=== PATIENT | female | born 1955 | race Caucasian/White ===

== ENCOUNTER 2022-10-03 08:14 | Day surgery (SDC) | payer MEDICARE, BC ==
[2022-10-01 11:44] LABS: BASOPHILS # (AUTO) 0.1 X10'3 (0-0.2); EOSINOPHILS # (AUTO) 0.1 X10'3 (0-0.9); EOSINOPHILS % (AUTO) 1.9 % (0-6); LYMPHOCYTES # (AUTO) 1.5 X10'3 (1.1-4.8); LYMPHOCYTES % (AUTO) 24.4 % (21-51); MEAN CORPUSCULAR HEMOGLOBIN 28.9 PG (27.0-31.0); MEAN CORPUSCULAR VOLUME 87.5 FL (78-98); MEAN PLATELET VOLUME 8.5 FL (7.4-10.4); MONOCYTES # (AUTO) 0.5 X10'3 (0-0.9); MONOCYTES % (AUTO) 8.5 % (2-12); NEUTROPHILS # (AUTO) 3.9 X10'3 (1.8-7.7); NEUTROPHILS % (AUTO) 64.2 % (42-75); PRE OP HEMATOCRIT 38.4 % (35.0-45.0); PRE OP HEMOGLOBIN 12.7 g/dL (12.0-16.0); PRE OP PLATELET COUNT 241 X10'3 (140-440); RED BLOOD COUNT 4.39 X10'6 (4.20-5.60); RED CELL DISTRIBUTION WIDTH 15.1 % (11.5-14.5)
[2022-10-01 11:47] LABS: CLARITY,URINE SLIGHTLY CLOUDY (Clear); COLOR,URINE YELLOW (Yellow); GLUCOSE, URINE NEGATIVE (Neg); KETONES,URINE NEGATIVE (Neg); LEUKOCYTE ESTERASE ,URINE NEGATIVE (Neg); NITRITES, URINE NEGATIVE (Neg); OCCULT BLOOD,URINE NEGATIVE (Neg); PROTEIN,URINE NEGATIVE (Neg); UROBILINOGEN,URINE 0.2 E.U/dL (0.2-1.0)
[2022-10-01 11:50] LABS: UA COLLECTION TYPE CLN CATCH MIDSTREAM
[2022-10-01 11:53] LABS: BACTERIA,URINE FEW /HPF (Neg); RBC,URINE NONE SEEN /HPF (0-2); SQUAMOUS EPITHELIAL CELL,UR MANY /LPF (FEW); WBC,URINE 0-4 /HPF (0-4)
[2022-10-01 11:59] LABS: ALBUMIN 3.7 G/DL (3.4-5.0); ALKALINE PHOSPHATASE 92 IU/L (46-116); BLOOD UREA NITROGEN 19 MG/DL (7-18); BUN/CREATININE RATIO 19.2 (10.0-20.0); CALCIUM 9.1 MG/DL (8.5-10.1); CHLORIDE 104 MMOL/L (99-107); CREATININE 0.99 MG/DL (0.40-0.90); PRE OP ALT 29 U/L (30-65); PRE OP ANION GAP 7 (8-16); PRE OP AST 20 U/L (10-37); PRE OP BILIRUB, TOTAL 0.3 MG/DL (0.0-1.0); PRE OP GLUCOSE 100 MG/DL (70-104); PRE OP POTASSIUM 4.3 MMOL/L (3.4-5.1); PRE OP SODIUM 139 MMOL/L (135-145); TOTAL CARBON DIOXIDE 28.1 MMOL/L (24-32); TOTAL PROTEIN 7.4 G/DL (6.4-8.2); eGFR 56 ML/MIN
[~2022-10-03] VITALS: Ht 172.7 cm; Wt 116.6 kg
[2022-10-03] VITALS (9 sets, daily range): BP systolic 109–152; BP diastolic 79–87
[~2022-10-03 08:14] MED LIST: DUPI300S SQ; GENTAMICIN IV ONE; LEVO75TA7 PO; NORMAL SALINE IV ONE; PANT40TA54 PO; clindamycin-Cleocin 900mg/D5W 50 ML IV ONE; famotidine 20mg tablet PO ONE; ringers solution, lacted 1,000 ML IV SCH
[2022-10-03] MEDS ORDERED: morphine 4 MG/ML inj SYRINge IV PRN (09:25)
[2022-10-03] MEDS ORDERED: proCHLORperazine 10 MG/2 ml inj IV PRN (09:25)
[2022-10-03] MEDS ORDERED: ondansetron/PF 4mg/2ml inj IV PRN (09:25)
[2022-10-03] MEDS ORDERED: meperidine/PF 25mg/ml syringe IV PRN ×3 (09:25)
[2022-10-03] MEDS ORDERED: morphine 2 MG/ML inj. syringe IV PRN (09:25)
[2022-10-03] MEDS ORDERED: ringers solution, lacted 1,000 ML IV SCH (09:25)
[2022-10-03] MEDS ORDERED: dexamethasone sod phosphate 10mg/ml inj ONE (10:33)
[2022-10-03] MEDS ORDERED: sevoflurane 250ml liquid IH ONE (10:33)
[2022-10-03] MEDS ORDERED: fentaNYL/PF 50MCG/1 ML 2ML syringe ONE (10:45)
[2022-10-03] MEDS ORDERED: midazolam 1 mg/ML 2ml injection ONE (10:45)
[2022-10-03] MEDS ORDERED: propofol inj 20 ML IV ONE (10:46)
[2022-10-03] MEDS ORDERED: LIDOcaine 1%/PF 5ML 10 MG/ML VIAL ONE (10:53)
[2022-10-03] MEDS ORDERED: ondansetron/PF 4mg/2ml inj ONE (10:54)
[2022-10-03] MEDS ORDERED: acetaminophen 1,000mg/100ml IV 100 ML IV ONE (11:15)
--- NOTE | 2022-10-03 11:38 | NUR ---
Received from [facility] TO RECOVERY ROOM 7, accompanied by Anesthesiologist DR SÁNCHEZ and report given by Anesthesiolgist. PT PRESENTS WITH 20G LEFT HAND, KORINA PAD BETWEEN PT LEGS, CDI, VSS. Addendum: 10/03/22 at 1158 by Cleo Vernon RN RN Amended: Links added.
[2022-10-03] MEDS ORDERED: HYDROcodone/acetaminophen 5mg/325mg tablet PO ONE (12:10)
--- NOTE | 2022-10-03 12:48 | NUR ---
I HAVE REVIEWED D/C INSTRUCTIONS WITH PATIENT AND THEY HAVE VERBALIZED UNDERSTANDING OF INSTRUCTIONS. PT TAKEN OUT IN WHEEL CHAIR. PATIENT D/C HOME WITH ALL BELONGINGS AND [facility] GAVE TRANSPORT Addendum: 10/03/22 at 1255 by Cleo Vernon RN, RN Amended: Links added.
== END 2022-10-03 12:48 | disposition home or self-care (01) ==
LOC: PAS 08:14
PROVIDERS: ATTEND Obstetrics & Gynecology Obstetrics
DX: N95.0 Postmenopausal bleeding (principal); N84.0 Polyp of corpus uteri; E03.9 Hypothyroidism, unspecified; E66.01 Morbid (severe) obesity due to excess calories; Z68.39 Body mass index [BMI] 39.0-39.9, adult; K21.9 Gastro-esophageal reflux disease without esophagitis; Z98.890 Other specified postprocedural states; Z88.2 Allergy status to sulfonamides; Z88.0 Allergy status to penicillin; Z79.899 Other long term (current) drug therapy; Z72.89 Other problems related to lifestyle; Z82.49 Family history of ischemic heart disease and other diseases of the circulatory system; Z83.3 Family history of diabetes mellitus; Z80.3 Family history of malignant neoplasm of breast; Z80.8 Family history of malignant neoplasm of other organs or systems; Z80.49 Family history of malignant neoplasm of other genital organs
CPT/HCPCS: 36415; 58558; 71046; 80053; 81001; 82948; 85025; 86885; 86900; 86901; 93005; J0131; J1580; J2250; J2405; J2704; J3010; J3490; J7030; J7120; Z7506; Z7508; Z7512; 88305; A4355; A4618; A6258; A7000; J1100